=== PATIENT | female | born 1945 | race Caucasian/White ===

== ENCOUNTER 2023-12-07 10:40 | Outpatient (CLI) | payer MEDICARE, SELFPAY ==
--- NOTE | 2023-12-07 11:45 | ECG_ITS ---
Test Date: 2023-12-07 11:56:01 Measurements Intervals [place] Rate: 77 P: 35 LA: 166 QRS: -47 QRSD: 92 T: 15 QT: 406 QTc: 462 Interpretive Statements SINUS RHYTHM LEFT ANTERIOR FASCICULAR BLOCK [QRS AXIS <= -45, QR IN I, RS IN II] POOR R-WAVE PROGRESSION PREVIOUS INFERIOR INFARCTION CANNOT RULE OUT PREVIOUS ANTERIOR INFARCTION ABNORMAL ECG WARNING: DATA QUALITY MAY AFFECT INTERPRETATION No previous ECG available for comparison Electronically Signed On 12-07-2023 15:59:25 CDT by Alonso Lyons M.D.
[2023-12-07 12:18] LABS: Basophils Absolute Auto 0.1 K/mm3 (0.0-0.1); Basophils Percent Auto 0.5 % (0.2-1.2); Eosinophils Absolute Auto 0.1 K/mm3 (0-0.3); Eosinophils Percent Auto 1.2 % (0-4.4); Hematocrit 41.6 % (37.0-47.0); Hemoglobin 13.7 g/dL (12.0-15.0); Immature Granulocyte Absolute 0.03 K/mm3 (0.00-0.031); Immature Granulocyte Percent A 0.3 % (0-0.5); Lymphocytes Absolute Auto 2.42 K/mm3 (0.9-3.2); Lymphocytes Percent Auto 25.7 % (18.3-44.2); Mean Corpuscular HGB Conc 32.9 g/dl (32-36); Mean Corpuscular Hemoglobin 29.3 pg (26-34); Mean Corpuscular Volume 89.1 fl (80-100); Mean Platelet Volume 9.9 fl (7.4-10.4); Monocytes Absolute Auto 0.6 K/mm3 (0.1-0.6); Monocytes Percent Auto 6.6 % (2.6-8.5); Neutrophils Absolute Auto 6.2 K/mm3 (1.3-6.7); Neutrophils Percent Auto 65.7 % (45.5-73.1); Platelet Count Result 365 k/mm3 (150-375); Red Blood Count 4.67 M/mm3 (4.2-5.4); Red Cell Distribution Width 13.9 % (11.5-14.5); White Blood Count 9.4 K/mm3 (4.5-10.0)
[2023-12-07 12:29] LABS: Alanine Aminotransferase 17 U/L (6-35); Albumin Level 4.8 g/dL (3.5-5.1); Alkaline Phosphatase 70 U/L (38-126); Anion Gap 8 mmol/L (4-12); Aspartate Amino Transferase 25 U/L (14-36); Bilirubin,Total 0.7 mg/dL (0.2-1.3); Blood Urea Nitrogen 18 mg/dL (7-17); Calcium 9.5 mg/dL (8.4-10.2); Carbon Dioxide 30 mmol/L (22-30); Chloride 101 mmol/L (98-107); Estimated Glomerular Filt Rate > 60; Glucose 98 mg/dL (65-110); Potassium 3.4 mmol/L (3.4-5.0); Sodium 139 mmol/L (137-145)
[2023-12-07 12:31] LABS: Prothrombin Time 13.2 Seconds (11.1-14.7)
[2023-12-07 12:32] LABS: Partial Thromboplastin Time 33.5 Seconds (22.3-36.8)
== END 2023-12-07 10:41 | disposition home or self-care (01) ==
LOC: ANHSURGERY 10:49
PROVIDERS: Visit Provider Urology
DX: Z01.818 Encounter for other preprocedural examination (principal); N81.9 Female genital prolapse, unspecified; I10 Essential (primary) hypertension
CPT/HCPCS: 36415; 80053; 85025; 85610; 85730; 86850; 86900; 86901; 93005

== ENCOUNTER 2023-12-14 00:13 | Day surgery (SDC) | payer MEDICARE, SELFPAY ==
[2023-12-07 11:07] VITALS: BP 136/72; PULSE 80; RESP 16; TEMP 37.4; O2SAT 96; BMI 38.7
--- NOTE | 2023-12-07 11:21 | PC.NURSE ---
Report to the Outpatient Waiting Room, entrance under the green pavilion located off [facility], at time ___9:00AM____ on date __12/14/23 . Planned Procedure Time: ___11:00AM . Time changes happen often and if your time is changed the preop area will call you the afternoon before. - You and your visitor will be asked to self-screen and do not enter if you have any COVID symptoms. - A mask is optional within the hospital at this time. Patients may have clear liquids (water, carbonated beverages, clear teas, apple juice) until 3 hours prior to surgery with a maximum of 20 ounces. - No food from midnight until time of surgery. Take the following medications with a SIP of water the morning of surgery: ___AMLODIPINE & LEVOTHYROXINE DO NOT STOP ANY OF YOUR OTHER PRESCRIPTION MEDICATIONS PRIOR TO SURGERY ?EXCEPT THE FOLLOWING Medications to discontinue per physician ___HOLD ASPIRIN 7 DAYS PRE-OP PER DR SALAS Date to take last dose____12/06/23 Please no make-up, nail wolof, hairspray, perfume, deodorant, or body powder the day of surgery. No jewelry (including any body piercings) or valuables the day of surgery, leave them at home. Please take a shower or bath the night before, or the morning of, surgery with an antibacterial soap. Wear comfortable, loose fitting clothing. - Jewelry must be removed prior to entering the operating room. Rings and piercings that are not removed may be cut off. - The hospital will not accept responsibility for valuables. - Please leave all valuables, including medications, at home the day of surgery. If you are going home after surgery, a licensed power truck driver must drive you home. - NO public transportation without another adult if you receive anesthesia. - We recommend that an adult stay with you for 24 hours following discharge. - We also recommend that you do not drive, make important decision, drink alcoholic beverages, or take any drugs that were not prescribed by your health care provider for at least 24 hours after your discharge time. Follow any additional instructions given to you from your surgeon. If you or anyone in your household have experienced Covid symptoms in the past week, please notify your surgeon or the nurse liaison at the phone number below for possible testing. Telephone instructions given to ___PATIENT and asked if any additional questions and then verbalized understanding. Patient advised to call surgeon office or pre surgery nurse liaison [phone] if any additional questions.
--- NOTE | 2023-12-13 07:47 | PM.IMHP ---
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 She is recurrent prolapse. She has not sexually active. She has intrinsic sphincter deficiency and a degree of nocturnal enuresis. She presents for surgery Review of Systems Review of Systems: All systems reviewed & are unremarkable except as noted in HPI and below PMFSH Social History Social History Smoking packs per day: 0.25 Smoking cigarettes per day: 5.0 Years smoked: 5 Smoking pack-years: 1.25 Smoking status: Former smoker Tobacco type: cigarettes Smoking end date: 12/13/74 Living arrangements: alone Spiritual care concerns: No Meds Home Medications and Allergies Home Medications Medication Instructions Recorded Confirmed Type amlodipine 5 mg tablet 5 mg PO QAM 12/07/23 12/07/23 History aspirin 81 mg tablet,delayed 81 mg PO DAILY 12/07/23 12/07/23 History release estradiol 0.01% (0.1 mg/gram) 1 appful vaginal WEEKLY PRN 12/07/23 12/07/23 History vaginal cream Vaginal Irritation ezetimibe 10 mg tablet 10 mg PO HS 12/07/23 12/07/23 History hydrochlorothiazide 25 mg tablet 25 mg PO QAM 12/07/23 12/07/23 History levothyroxine 100 mcg tablet 100 mcg PO QAM 12/07/23 12/07/23 History lisinopril 40 mg tablet 40 mg PO QAM 12/07/23 12/07/23 History nystatin 100,000 unit/gram topical 1 applic topical BID PRN Skin 12/07/23 12/07/23 History cream Irritation omeprazole 20 mg tablet,delayed 20 mg PO DAILY PRN Indigestion 12/07/23 12/07/23 History release trazodone 50 mg tablet 50 mg PO HS PRN Insomnia 12/07/23 12/07/23 History Allergies Allergy/AdvReac Type Severity Reaction Status Date / Time No Known Allergies Allergy Verified 12/07/23 11:00 Exam Narrative: no acute distress normal breathing alert oriented x3 fixed urethra vaginal vault prolapse have was 4 Assessment and Plan Assessment and plan (1) Prolapse of vaginal vault after hysterectomy: Code(s): N99.3 - Prolapse of vaginal vault after hysterectomy Status: Acute (2) Intrinsic sphincter deficiency (ISD): Code(s): N36.42 - Intrinsic sphincter deficiency (ISD) Status: Acute Plan colpocleisis and concomitant bulking agent. She understands risks of bleeding, infection, damage to surrounding organs, damage to the urinary tract, fistula formation, recurrence of prolapse, postoperative voiding dysfunction including incontinence and retention, need for ancillary procedures, inability to have penetrative intercourse. She agrees to proceed
[2023-12-14] VITALS (9 sets, daily range): BP systolic 132–140; BP diastolic 64–70; PULSE 66–86; RESP 12–17; TEMP 36.3–36.5; O2SAT 94–100; BMI 37.8
--- NOTE | 2023-12-14 07:14 | WPDHPUPDATE1 ---
History and Physical Update Update Date/Time: 12/14/23 07:14 History and Physical has been reviewed, including an updated exam of the patient. There are NO changes in the patient's condition. Risks, benefits, and alternatives have been discussed and questions answered. Patient agrees to proceed with procedure.
[2023-12-14] MEDS: LACTATED RINGERS 1,000 ML 30 ML IV CONT ×2 (09:42→12:26)
--- NOTE | 2023-12-14 09:45 | P.PNAN_ITS ---
Anes - Initial Pre Proc Eval Procedure: Operation Date: 12/14/23 11:00 Proposed Procedures p Colpocleisis - Richard Powell MD s Cystoscopy, with Bulking Agent - Richard Powell MD Date/Time: 12/14/23 09:45 Surgeon: Richard Powell MD Pre Op Diagnosis: vaginal vault prolapse Patient Data Age: 78 Gender: F Height: 1.57 m Weight: 93.65 kg Last Vital Signs Temp 36.5 C 12/14/23 09:29 Pulse 86 12/14/23 09:29 Resp 16 12/07/23 11:07 BP 140/70 12/14/23 09:29 Pulse Ox 96 12/07/23 11:07 O2 Del Method Room Air 12/14/23 09:29 Allergies Allergy/AdvReac Type Severity Reaction Status Date / Time No Known Allergies Allergy Verified 12/14/23 09:06 Home Medications Medication Instructions Recorded Confirmed Type amlodipine 5 mg tablet 5 mg PO QAM 12/07/23 12/07/23 History aspirin 81 mg tablet,delayed 81 mg PO DAILY 12/07/23 12/07/23 History release estradiol 0.01% (0.1 mg/gram) 1 appful vaginal WEEKLY PRN 12/07/23 12/07/23 History vaginal cream Vaginal Irritation ezetimibe 10 mg tablet 10 mg PO HS 12/07/23 12/07/23 History hydrochlorothiazide 25 mg tablet 25 mg PO QAM 12/07/23 12/07/23 History levothyroxine 100 mcg tablet 100 mcg PO QAM 12/07/23 12/07/23 History lisinopril 40 mg tablet 40 mg PO QAM 12/07/23 12/07/23 History nystatin 100,000 unit/gram topical 1 applic topical BID PRN Skin 12/07/23 12/07/23 History cream Irritation omeprazole 20 mg tablet,delayed 20 mg PO DAILY PRN Indigestion 12/07/23 12/07/23 History release trazodone 50 mg tablet 50 mg PO HS PRN Insomnia 12/07/23 12/07/23 History Patient hx anesthesia problems: none Family hx anesthesia problems: none Results Review: All pre-operative results and documents have been reviewed as part of the pre- operative evaluation. [facility] Past Medical History Medical History (Updated 12/14/23 @ 09:46 by Surya Reyes MD) HTN (hypertension) Obesity FATOUMATA (obstructive sleep apnea) Social History Social History Smoking packs per day: 0.25 Smoking cigarettes per day: 5.0 Years smoked: 5 Smoking pack-years: 1.25 Smoking status: Former smoker Tobacco type: cigarettes Smoking end date: 12/13/74 Living arrangements: alone Spiritual care concerns: No Anes - Eval Final PreProcedure Day of Procedure 12/14/23 09:45 Patient weight: obese Heart: regular rate and rhythm Lungs: clear to auscultation Airway: Mallampati scale class II Neurological: alert and oriented Last oral intake: >/= 8 hours ASA classification: III Emergent: no Anesthetic plan: proceed Anesthesia type and monitoring: general LMA and standard monitoring Results Review: All pre-operative results and documents have been reviewed as part of the pre- operative evaluation. Informed Consent: The patient's anesthetic plan and its attendant risks and benefits were discussed with the patient/family/POA. Questions were solicited and answers provided to the satisfaction of the patient/family/POA.
[2023-12-14] MEDS: ceFAZolin 2 GM/D5W 50 ML 2 GM/50 ML BAG IVPB (10:40)
[2023-12-14] MEDS: BUPIVACAINE/EPINEPHRINE 0.5% 10 ML VIAL 20 ML INFILTRATE (11:09)
[2023-12-14] MEDS: ONDANSETRON INJ 4 MG/2 ML VIAL IV PUSH (12:25)
[2023-12-14] MEDS: fentaNYL CITRATE INJ (*CRX) 100 MCG/2 ML VIAL 25 MCG IV PUSH ×2 (12:26→12:42)
--- NOTE | 2023-12-14 12:31 | P.OP_ITS ---
Procedure Note - Detailed Date of Procedure 12/14/23 Pre-op Diagnosis vaginal vault prolapse, Cystocele, rectocele, female perineal laxity, intrinsic sphincter deficiency Post-op Diagnosis Same Procedure Performed cystocele repair, rectocele repair, colpocleisis, perineorrhaphy, cystoscopy with suburethral injection of implant material Surgeon Richard Powell MD Anesthesia General Indications this is a woman with posthysterectomy vaginal wall prolapse. She is not sexually active. She has intrinsic sphincter deficiency as well. She presents for the above. She understands risks of bleeding, infection, damage surrounding organs, damage to the urinary tract, inability to have penetrative intercourse, recurrence of prolapse, persistent prolapse or incontinence. She agrees to proceed Description of Procedure she was correctly identified. Informed consent obtained. From the operating room. She was given general anesthesia. She was placed in dorsal lithotomy position. She was prepped draped sterile fashion. Time-out performed. Placed a [place] retractor. I placed Angel catheter. She had significant vaginal vault prolapse. She had a cystocele, rectocele, female perineal laxity. I marked out 2 rectangle shaped areas on the posterior anterior vaginal wall. She had scarring from her previous hysterectomy at the vaginal cuff. I anesthetized the posterior vaginal wall. I mucosa. I did the same on the anterior vaginal wall. I then performed a pursestring plication repair plicating the anterior and posterior bryant performing a cystocele and rectocele repair and in essence a classic colpocleisis. This completely reduced the prolapse. I then sewed mucosa to mucosa in a horizontal mattress fashion using 0 Vicryl suture. This completed the prolapse repair. I then anesthetized a christina-shaped area of skin on the perineum. I anesthetized the skin. I removed this area of skin. I performed a perineoplasty with 0 Vicryl suture. This narrowed the vaginal introitus. I closed mucosa to mucosa with 2-0 Vicryl suture. This completed the prolapse repair. On cystoscopy she had moderate trabeculation. No other bladder abnormalities. No foreign bodies or stones. No tumors. Ureters were normal. Bilateral ur eteral patency was documented by passing guidewires up both ureters. Urethra is open consistent with intrinsic sphincter deficiency I chose an area in the urethra 2 cm distal to bladder neck. I injected bulking agent circumferentially. I performed 5 pillows completely coapting the urethra. I used 1 syringe of bulking material total. her bladder with a partially full. Rectal exam was normal. She was awakened transferred to PACU in stable Estimated Blood Loss 30 Drains No Packing No Pathology None sent Complications No immediate complications Disposition PACU
[2023-12-14] MEDS: oxyCODONE HCL (*CRX) 5 MG TAB IR PO (13:43)
== END 2023-12-14 14:16 | disposition home or self-care (01) ==
PROVIDERS: Visit Provider Urology
PROC: (CPT 57120; principal; 2023-12-14 11:00)
PROC: 3E0K8GC Introduction of Other Therapeutic Substance into Genitourinary Tract, Via Natural or Artificial Opening Endoscopic (ICD-10-PCS; CPT 57260; 2023-12-14 11:00)
DX: N99.3 Prolapse of vaginal vault after hysterectomy (principal); N36.42 Intrinsic sphincter deficiency (ISD); I10 Essential (primary) hypertension; G47.33 Obstructive sleep apnea (adult) (pediatric); E66.9 Obesity, unspecified; Z68.37 Body mass index [BMI] 37.0-37.9, adult; Z87.891 Personal history of nicotine dependence; Z79.82 Long term (current) use of aspirin
CPT/HCPCS: 57260; 51715; 36415; 80053; 85025; 85610; 85730; 86850; 86900; 86901; 93005; A9270; J0690; J2250; J2405; J2704; J3010; J7030; J7120; L8606; Q9968